=== PATIENT | female | born 1965 | race Caucasian/White ===

== ENCOUNTER 2020-09-01 08:53 | Outpatient (CLI) | payer BC, SELFPAY ==
--- NOTE | ~2020-09-01 | DEXA_ITS ---
Bone Density Report Name: Karli Lee Age: 55 Sex: Female Ethnicity: White Date of : 1965 Indication: postmenopausal; height loss; Referring Provider: OSWALDO IZQUIERDO Study: Bone densitometry was performed. Exam Date: September 01, 2020 Accession number: [id number] Bone Density: Region BMD T-score Z-score Classification AP Spine (L1, L2, L3) 1.043 0.2 1.4 Normal Femoral Neck (Left) 0.786 -0.6 0.6 Normal Total Hip (Left) 0.968 0.2 1.0 Normal Total Hip Bilateral Avg 1.016 0.6 1.4 Normal Femoral Neck (Right) 0.895 0.4 1.6 Normal Total Hip (Right) 1.064 1.0 1.8 Normal World Health Organization criteria for BMD impression classify patients as: Normal (T-score at or above -1.0), Osteopenia (T-score between -1.0 and -2.5), or Osteoporosis (T-score at or below -2.5). 10-year Fracture Risk: FRAX not reported because: All T-scores for Spine Total, Hip Total, Femoral Neck at or above -1.0 Previous Exams: Region Exam Age BMD T-score BMD Change BMD Change Date g/cm2 vs Baseline vs Previous AP Spine(L1, L2, L3) 09/01/2020 55 1.043 0.2 -0.114(-9.8%)* -0.114(-9.8%)* 03/26/2016 50 1.156 1.3 Total Hip(Left) 09/01/2020 55 0.968 0.2 -0.084(-8.0%)* -0.084(-8.0%)* 03/26/2016 50 1.052 0.9 Total Hip(Right) 09/01/2020 55 1.064 1.0 -0.036(-3.3%)* -0.036(-3.3%)* 03/26/2016 50 1.101 1.3 *Denotes significance at 95% confidence level, LSC for AP Spine = 0.022 g/cm2, LSC for Total Hip = 0.027 g/cm2 Clinical Information Provided by Patient: Patient maximum height was 72 Menopause Age: 48 Drinks caffeinated beverages Onset of menses at age 10 Number of children 1 Impression: The patient has normal bone mass. The BMD for the AP Spine(L1, L2, L3) decreased, changing by -9.8% since the last DXA exam. The BMD for the Total Hip(Left) decreased, changing by -8.0% since the last DXA exam. The BMD for the Total Hip(Right) decreased, changing by -3.3% since the last DXA exam. Discussion: BONE DENSITY IS ABOVE THE MINIMUM DESIRABLE LEVEL AT ALL SKELETAL SITES TESTED. This patient?s bone mineral density is above the minimum desirable level (T-score -1.0 or better) at all sites measured. The patient should follow a healthful lifestyle (good nutrition with adequate calcium and vitamin D, and appropriate weight-bearing exercise). Follow-Up: Consider repeating this study in 3 to 4 years to reassess this patient's status, or sooner if there is some n
--- NOTE | ~2020-09-01 | MM_ITS ---
EXAMINATION: MM screening [facility] BI w phyllis HISTORY: Screening mammogram TECHNIQUE: Craniocaudal and mediolateral oblique 3-D tomosynthesis images were obtained and synthetic 2-D images were generated. CAD analysis was submitted and interpreted. COMPARISON: 08/13/2019, 07/09/2018, 01/28/2017 BREAST PARENCHYMAL COMPOSITION: There are scattered areas of fibroglandular density. FINDINGS: There is no evidence of suspicious mass, calcification, or architectural distortion to sugg est malignancy in either breast. There has been no suspicious interval change. IMPRESSION: 1. No mammographic evidence of malignancy. 2. Recommend routine screening mammography in one year. BI-RADS Category 1: Negative Reviewed, dictated and finalized at location A. CONSULTANT
== END 2020-09-01 08:54 | disposition home or self-care (01) ==
PROVIDERS: PCP Nurse Practitioner Family; Visit Provider Obstetrics & Gynecology Gynecology
DX: Z12.31 Encounter for screening mammogram for malignant neoplasm of breast (principal); Z78.0 Asymptomatic menopausal state
CPT/HCPCS: 77063; 77067; 77080